=== PATIENT | male | born 1980 | race Caucasian/White ===

== ENCOUNTER 2016-12-21 05:36 | Emergency (ER) | payer OTHER ==
[~2016-12-21] VITALS: Ht 198.1 cm; Wt 158.8 kg
[2016-12-21] MEDS ORDERED: NS 1,000 ML IV ONE (06:15)
[2016-12-21 06:23] LABS: BASO % 0.1 % (0.0-1.0); EOS # 0.1 K/mm3 (0.0-0.50); EOS % 0.7 % (0.0-3.0); LARGE UNSTAINED CELL # 0.1 K/mm3 (0.0-0.4); LARGE UNSTAINED CELL % 0.7 % (0.0-4.0); LYMPH # 0.7 K/mm3 (1.5-4.5); LYMPH % 7.2 % (24.0-44.0); MEAN CORPUSCULAR HEMOGLOBIN 28.1 pg (27.0-33.0); MEAN CORPUSCULAR HGB CONC 33.3 g/dl (32.0-36.5); MEAN CORPUSCULAR VOLUME 84.2 fl (80.0-96.0); MONO # 0.4 K/mm3 (0.0-0.8); MONO % 3.9 % (0.0-5.0); NEUTROPHILS # 8.4 K/mm3 (1.8-7.7); NEUTROPHILS % 87.4 % (36.0-66.0); PLATELET COUNT, AUTOMATED 166 k/mm3 (150-450); RED CELL DISTRIBUTION WIDTH 12.8 % (11.5-14.5); WHITE BLOOD COUNT 9.6 K/mm3 (4.0-10.0)
[2016-12-21 06:48] LABS: ALBUMIN/GLOBULIN RATIO 1.03 (1.00-1.93); ALKALINE PHOSPHATASE 66 U/L (45-117); ALT/SGPT 20 U/L (12-78); ANION GAP 12 MEQ/L (8-16); AST/SGOT 18 U/L (15-37); BILIRUBIN,DIRECT 0.2 MG/DL (0.0-0.2); BILIRUBIN,TOTAL 0.7 MG/DL (0.2-1.0); BLOOD UREA NITROGEN 21 MG/DL (7-18); CALCIUM LEVEL 8.9 MG/DL (8.5-10.1); CARBON DIOXIDE LEVEL 24 MEQ/L (21-32); CHLORIDE LEVEL 105 MEQ/L (98-107); GLOMERULAR FILTRATION RATE > 60.0 (>60); GLUCOSE, FASTING 186 MG/DL (70-105); SODIUM LEVEL 141 MEQ/L (136-145); TOTAL PROTEIN 7.9 GM/DL (6.4-8.2)
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
[2016-12-21] MEDS ORDERED: KETOROLAC 30 MG/ML VIAL (J1885) IV ONE (07:15)
[2016-12-21] MEDS ORDERED: ONDANSETRON 4MG/2ML VIAL (J2405) IV ONE (07:15)
[2016-12-21 08:21] VITALS: O2SAT 97
[2016-12-21] MEDS ORDERED: ZOFR4TAB3 PO (08:22)
[2016-12-21] MEDS ORDERED: ISOVUE-370 76% 100ML VIAL (Q9967) As Ordered ONE (09:30)
[2016-12-21 10:23] VITALS: BP 120/63
--- NOTE | 2016-12-21 10:45 | REP ---
Clinical: Generalized pain. Technique: Axial contrast enhanced images from the lung bases to the pubic symphysis using 100 ml Isovue 370 intravenous contrast material with coronal and sagittal re-formations. Findings: Lung bases clear. Visualized heart and pericardium normal. Moderate hiatal hernia identified at the gastroesophageal junction. Liver, spleen, pancreas, gallbladder, bilateral adrenal glands and kidneys are normal. The stomach, small bowel, and proximal colon appears fluid-filled and may reflect enteritis. No evidence for bowel obstruction. Normal terminal ileum and appendix identified in the right lower quadrant. Pelvis demonstrates collapsed normal bladder and age appropriate prostate/seminal vesicles. No ascites. No free air. No adenopathy. Abdominal aorta and vasculature normal. Musculoskeletal structures are intact. Impression: Fluid-filled stomach and small bowel as well as proximal colon suggest the possibility of enteritis. Normal appendix without evidence for acute appendicitis. No ascites. No further acute intra-abdominal or pelvic pathology appreciated. Signed by Neville Mendez MD 12/21/2016 10:37 A
--- NOTE | 2016-12-22 09:15 | ECGEPIP ---
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
== END 2016-12-21 10:59 | disposition home or self-care (01) ==
LOC: M ED 07:52
DX: R55 Syncope and collapse (principal); S09.90XA Unspecified injury of head, initial encounter; X58.XXXA Exposure to other specified factors, initial encounter; Y92.89 Other specified places as the place of occurrence of the external cause; Y93.89 Activity, other specified; Y99.8 Other external cause status
CPT/HCPCS: 70450; 74177; 80048; 80076; 82550; 82553; 83690; 85025; 93005; 93041; 96374; 96375; 99285; J1885; J2405; Q9967

== ENCOUNTER 2017-01-22 20:55 | Emergency (ER) | payer OTHER ==
[~2017-01-22] VITALS: Ht 195.6 cm; Wt 147.0 kg
[~2017-01-22 20:55] MED LIST: ZOFR4TAB3 PO
[2017-01-22] MEDS ORDERED: AMOX875T PO (21:08)
[2017-01-22] MEDS ORDERED: NS 1,000 ML IV ONE (23:45)
[2017-01-22] MEDS ORDERED: ONDANSETRON 4MG/2ML VIAL (J2405) IV ONE (23:45)
[2017-01-22] MEDS: MORPHINE 4 MG/ML 1ML SYRINGE IV PRN (23:54)
[2017-01-23 00:06] LABS: BASO % 0.3 % (0.0-1.0); EOS # 0.1 K/mm3 (0.0-0.50); EOS % 1.1 % (0.0-3.0); LARGE UNSTAINED CELL # 0.1 K/mm3 (0.0-0.4); LARGE UNSTAINED CELL % 1.3 % (0.0-4.0); LYMPH # 1.6 K/mm3 (1.5-4.5); LYMPH % 16.9 % (24.0-44.0); MEAN CORPUSCULAR HEMOGLOBIN 28.3 pg (27.0-33.0); MEAN CORPUSCULAR HGB CONC 33.7 g/dl (32.0-36.5); MEAN CORPUSCULAR VOLUME 83.9 fl (80.0-96.0); MONO # 0.4 K/mm3 (0.0-0.8); MONO % 3.8 % (0.0-5.0); NEUTROPHILS # 7.2 K/mm3 (1.8-7.7); NEUTROPHILS % 76.6 % (36.0-66.0); PLATELET COUNT, AUTOMATED 212 k/mm3 (150-450); RED CELL DISTRIBUTION WIDTH 13.1 % (11.5-14.5); WHITE BLOOD COUNT 9.4 K/mm3 (4.0-10.0)
[2017-01-23 00:29] LABS: ALBUMIN 3.7 GM/DL (3.2-5.2); ALBUMIN/GLOBULIN RATIO 0.84 (1.00-1.93); ALKALINE PHOSPHATASE 96 U/L (45-117); ALT/SGPT 85 U/L (12-78); ANION GAP 6 MEQ/L (8-16); AST/SGOT 147 U/L (15-37); BILIRUBIN,DIRECT 0.4 MG/DL (0.0-0.2); BILIRUBIN,TOTAL 0.8 MG/DL (0.2-1.0); BLOOD UREA NITROGEN 15 MG/DL (7-18); CALCIUM LEVEL 9.4 MG/DL (8.5-10.1); CARBON DIOXIDE LEVEL 30 MEQ/L (21-32); CHLORIDE LEVEL 104 MEQ/L (98-107); CREATININE FOR GFR 0.92 MG/DL (0.70-1.30); GLOMERULAR FILTRATION RATE > 60.0 (>60); GLUCOSE, FASTING 126 MG/DL (70-105); SODIUM LEVEL 140 MEQ/L (136-145); TOTAL PROTEIN 8.1 GM/DL (6.4-8.2)
--- NOTE | 2017-01-23 00:50 | REPUSA ---
Clinical history: Right upper quadrant pain. Findings: The pancreas is limited in visualization secondary to overlying bowel gas, but appears jenae sly unremarkable. The liver demonstrates uniform echotexture and echogenicity, with no mass lesions. The gallbladder contains echogenic material, some of which demonstrates posterior acoustic shadowing. There is no evidence of gallbladder wall thickening. The common bile duct measures 4 mm and is withi n normal limits. The right kidney measures 12.0 x 7.8 x 4.7 cm and is unremarkable. There is no ascit es. Impression: 1. Cholelithiasis and gallbladder sludge. No evidence of acute cholecystitis.
[2017-01-23] MEDS ORDERED: DICYCLOMINE INJ 20MG/2ML (J0500) IM ONE (01:15)
[2017-01-23] MEDS: MORPHINE 4 MG/ML 1ML SYRINGE IV PRN (01:36)
[2017-01-23 03:14] VITALS: BP 115/67
[2017-01-23] MEDS ORDERED: HYOS1TAB PO (03:26)
== END 2017-01-23 03:30 | disposition home or self-care (01) ==
LOC: M ED 22:20
DX: K80.70 Calculus of gallbladder and bile duct without cholecystitis without obstruction (principal)
CPT/HCPCS: 36415; 76705; 80048; 80076; 83690; 85025; 93041; 96374; 96375; 99284; J0500; J2405

== ENCOUNTER 2017-11-03 12:43 | Emergency (ER) | payer OTHER ==
[2017-11-03] MEDS: IPRATROPIUM 0.5MG/ALBUTEROL 2.5MG INH SOL UD 3ML (DUONEB)(J7620) NEB ×3 (15:53→16:14)
[2017-11-03] MEDS: AUGMENTIN 875 MG TAB PO (17:00)
== END 2017-11-03 17:06 | disposition home or self-care (01) ==
LOC: M ED 12:43
DX: J20.9 Acute bronchitis, unspecified (principal); J10.1 Influenza due to other identified influenza virus with other respiratory manifestations; K44.9 Diaphragmatic hernia without obstruction or gangrene; Z88.1 Allergy status to other antibiotic agents
CPT/HCPCS: 71046

== ENCOUNTER → 2018-07-19 | Outpatient (CLI) | payer OTHER ==
[2018-07-19 18:10] LABS: BASO # 0.1 10^3/uL (0.0-0.2); BASO % 0.8 % (0.0-1.0); EOS # 0.2 10^3/uL (0.0-0.50); EOS % 2.4 % (0.0-3.0); HEMATOCRIT 37.6 % (42.0-52.0); HEMOGLOBIN 11.4 g/dl (13.5-17.5); IMMATURE GRANULOCYTE % 0.3 % (0-3.0); LYMPH # 2.2 10^3/uL (1.5-4.5); LYMPH % 35.6 % (24.0-44.0); MEAN CORPUSCULAR HGB CONC 30.3 g/dl (32.0-36.5); MEAN CORPUSCULAR VOLUME 82.5 fl (80.0-96.0); MONO # 0.7 10^3/uL (0.0-0.8); MONO % 11.4 % (0.0-5.0); NEUTROPHILS % 49.5 % (36.0-66.0); PLATELET COUNT, AUTOMATED 270 10^3/uL (150-450); RED BLOOD COUNT 4.56 10^6/uL (4.30-6.10); RED CELL DISTRIBUTION WIDTH 13.1 % (11.5-14.5); WHITE BLOOD COUNT 6.1 10^3/uL (4.0-10.0)
[2018-07-19 18:15] LABS: PSA SCREENING 0.56 NG/ML (< 4.0)
[2018-07-19 18:16] LABS: D-DIMER QUANT 561.7 ng/ml (<500)
[2018-07-19 19:21] LABS: ERYTHROCYTE SEDIMENTATION RATE 42 mm/hr (0-15)
[2018-07-21 08:39] LABS: FERRITIN 9 NG/ML (26-388); IRON (FE) 24 UG/DL (65-175); TOTAL IRON BINDING CAPACITY 403 UG/DL (250-450)
== END ==
LOC: M SMT 13:30
DX: R07.9 Chest pain, unspecified (principal); Q98.1 Klinefelter syndrome, male with more than two X chromosomes; R05 Cough
CPT/HCPCS: 83550

== ENCOUNTER → 2019-06-01 | Outpatient (REF) | payer OTHER ==
[~2019-06-01] MED LIST changes: +AMOX875T PO; +AUGM875T28 PO; +CVS1CAP2 PO; +HYOS1TAB PO; +OSEL75CA2; +PROAAER10 INH; +ZOFR4TAB14 PO; -ZOFR4TAB3 PO
== END ==
LOC: M LAB REF 17:18
PROVIDERS: ATTEND Family Medicine
DX: R21 Rash and other nonspecific skin eruption (principal)

== ENCOUNTER 2019-06-24 08:47 | Emergency (ER) | payer OTHER ==
[~2019-06-24] VITALS: Ht 198.1 cm; Wt 159.1 kg
[~2019-06-24 08:47] MED LIST changes: -CVS1CAP2 PO
[2019-06-24] MEDS ORDERED: CVS1CAP2 PO (09:03)
[2019-06-24] MEDS ORDERED: ASPIRIN 81 MG CHEW TABLET PO ONE (09:15)
[2019-06-24 09:31] LABS: BASO % 0.6 % (0.0-1.0); EOS # 0.2 10^3/uL (0.0-0.5); EOS % 2.8 % (0.0-3.0); HEMATOCRIT 25.2 % (42.0-52.0); HEMOGLOBIN 7.2 g/dl (13.5-17.5); LYMPH # 1.9 10^3/uL (1.5-5.0); LYMPH % 34.6 % (24.0-44.0); MEAN CORPUSCULAR HEMOGLOBIN 20.2 pg (27.0-33.0); MEAN CORPUSCULAR HGB CONC 28.6 g/dl (32.0-36.5); MEAN CORPUSCULAR VOLUME 70.6 fl (80.0-96.0); MONO # 0.4 10^3/uL (0.0-0.8); MONO % 7.1 % (0.0-5.0); NEUTROPHILS # 2.9 10^3/uL (1.5-8.5); NEUTROPHILS % 54.5 % (36.0-66.0); PLATELET COUNT, AUTOMATED 331 10^3/uL (150-450); RED BLOOD COUNT 3.57 10^6/uL (4.30-6.10); WHITE BLOOD COUNT 5.4 10^3/uL (4.0-10.0)
--- NOTE | 2019-06-24 09:40 | REP ---
Portable chest x-ray: Single view. History: Chest pain. Comparison chest x-ray: July 19, 2018. Findings: There is a large hiatal hernia behind the heart. Heart is not enlarged. Lungs are well inflated and clear. EKG monitoring electrodes are seen. Pulmonary vasculature is not increased. No significant bony abnormality is appreciated. Impression: Large hiatal hernia. Otherwise no acute disease. Electronically Signed by Sony Oropeza MD 06/24/2019 09:32 A
[2019-06-24 10:08] LABS: ALBUMIN 3.5 GM/DL (3.2-5.2); ALT/SGPT 14 U/L (12-78); BILIRUBIN,DIRECT 0.1 MG/DL (0.0-0.2); BILIRUBIN,TOTAL 0.5 MG/DL (0.2-1.0); BLOOD UREA NITROGEN 13 MG/DL (7-18); CALCIUM LEVEL 8.5 MG/DL (8.5-10.1); CARBON DIOXIDE LEVEL 25 MEQ/L (21-32); CHLORIDE LEVEL 107 MEQ/L (98-107); CK-MB VALUE MASS < 1.0 NG/ML (<3.6); CPK CREATINE PHOSPHOKINASE 70 U/L (39-308); CREATININE FOR GFR 0.94 MG/DL (0.70-1.30); FREE T4 1.23 NG/DL (0.76-1.46); GLOMERULAR FILTRATION RATE > 60.0 (>60); GLUCOSE, FASTING 106 MG/DL (70-100); LIPASE 108 U/L (73-393); MB/CK RELATIVE INDEX 1.43 (< OR =4); POTASSIUM SERUM 4.2 MEQ/L (3.5-5.1); SODIUM LEVEL 140 MEQ/L (136-145); TOTAL PROTEIN 7.3 GM/DL (6.4-8.2); TROPONIN I < 0.02 NG/ML (< 0.10)
[2019-06-24] MEDS ORDERED: NS 1,000 ML IV ONE (10:45)
[2019-06-24] MEDS ORDERED: ISOVUE-370 76% 100ML VIAL (Q9967) As Ordered ONE (11:27)
[2019-06-24] MEDS ORDERED: PANTOPRAZOLE 40MG INJ (PROTONIX) (C9113) IV ONE (11:30)
--- NOTE | 2019-06-24 12:40 | REP ---
CT ANGIO CHEST: TECHNIQUE: Axial contrast enhanced images from the thoracic inlet to the upper abdomen using 100 mL Isovue 370 intravenous contrast material with multiplanar reformations. There is no CT evidence of pulmonary embolism. There is no thoracic aortic aneurysm or dissection. The heart is normal in size. There is no pleural or pericardial effusion. There is no mediastinal, hilar, or chest wall lymphadenopathy. There is a large hiatal hernia. No infiltrate is seen in either lung. Incidental note is made of mild bilateral gynecomastia. IMPRESSION: No CT evidence of pulmonary embolism. No infiltrate in either lung. Large hiatal hernia. Electronically Signed by Santy Berman MD 06/24/2019 04:40 P
[2019-06-24 15:04] LABS: CK-MB VALUE MASS 1.5 NG/ML (<3.6); MB/CK RELATIVE INDEX 2.08 (< OR =4); TROPONIN I 0.17 NG/ML (< 0.10)
--- NOTE | 2019-06-24 15:21 | REP ---
CT of the abdomen and pelvis with IV contrast, without bowel contrast: The studies performed contiguously with the chest CT this same date. Comparison is 12/21/2016. There is a large fixed hiatal hernia containing the entire stomach. Previously only the gastric fundus was involved. There is a small volume of fluid in the distal esophagus. The hepatic parenchyma is homogeneous. The gallbladder, pancreas and spleen are unremarkable. The adrenals, kidneys and abdominal aorta are unremarkable. There is no bowel distension or obstruction. There is no ascites. There is no retroperitoneal or mesenteric adenopathy. Pelvis: The appendix is unremarkable. There is no ascites. The pelvic bowel loops are unremarkable. The bladder is unremarkable. The Impression: Large fixed hiatal hernia containing the entire stomach. Only the gastric fundus was involved on the prior study. Otherwise, essentially negative CT of the abdomen and pelvis. Electronically Signed by Santy Castro MD 06/24/2019 03:13 P
[2019-06-24] MEDS ORDERED: NS 1,000 ML IV SCH (16:30)
[2019-06-24 17:08] VITALS: BP 128/77
--- NOTE | 2019-06-24 20:05 | ECGEPIP ---
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
--- NOTE | 2019-06-24 20:12 | ECGEPIP ---
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 Order Number: [id number] Reading MD: Hunter Altamirano Measurements Intervals [place] Rate: 74 P: 6 PA: 187 QRS: -1 QRSD: 105 T: 8 QT: 377 QTc: 419 Interpretive Statements SINUS RHYTHM VOLTAGE CRITERIA FOR LVH BENIGN EARLY REPOLARIZATION SIMILAR TO PRIOR ON SAME DATE Electronically Signed on 06-24-2019 20:12:14 EDT by Hunter Altamirano
== END 2019-06-24 17:13 | disposition short-term general hospital (02) ==
LOC: M ED 08:47
DX: I21.4 Non-ST elevation (NSTEMI) myocardial infarction (principal); K92.2 Gastrointestinal hemorrhage, unspecified; K44.9 Diaphragmatic hernia without obstruction or gangrene; D64.9 Anemia, unspecified; I45.89 Other specified conduction disorders; Z79.899 Other long term (current) drug therapy; Z88.1 Allergy status to other antibiotic agents
CPT/HCPCS: 71045; 71275; 74177; 80048; 80076; 82550; 82553; 83690; 84439; 84443; 84484; 85025; 85379; 93005; 93041; 94760; 96361; 96374; 99285; C9113; Q9967

== ENCOUNTER → 2019-07-22 | Outpatient (CLI) | payer OTHER ==
[~2019-07-22] MED LIST changes: +CVS1CAP2 PO
[2019-07-22 16:37] LABS: BASO % 0.6 % (0.0-1.0); EOS # 0.2 10^3/uL (0.0-0.5); EOS % 2.9 % (0.0-3.0); HEMATOCRIT 36.4 % (42.0-52.0); HEMOGLOBIN 10.5 g/dl (13.5-17.5); LYMPH # 2.3 10^3/uL (1.5-5.0); MEAN CORPUSCULAR HEMOGLOBIN 22.7 pg (27.0-33.0); MEAN CORPUSCULAR HGB CONC 28.8 g/dl (32.0-36.5); MEAN CORPUSCULAR VOLUME 78.8 fl (80.0-96.0); MONO # 0.4 10^3/uL (0.0-0.8); NEUTROPHILS # 3.4 10^3/uL (1.5-8.5); NEUTROPHILS % 54.2 % (36.0-66.0); PLATELET COUNT, AUTOMATED 274 10^3/uL (150-450); RED BLOOD COUNT 4.62 10^6/uL (4.30-6.10); WHITE BLOOD COUNT 6.3 10^3/uL (4.0-10.0)
[2019-07-22 16:48] LABS: ALBUMIN 3.8 GM/DL (3.2-5.2); ALT/SGPT 19 U/L (12-78); BILIRUBIN,TOTAL 0.5 MG/DL (0.2-1.0); BLOOD UREA NITROGEN 13 MG/DL (7-18); CALCIUM LEVEL 9.3 MG/DL (8.5-10.1); CARBON DIOXIDE LEVEL 29 MEQ/L (21-32); CHLORIDE LEVEL 107 MEQ/L (98-107); FERRITIN 15 NG/ML (26-388); FREE T4 1.19 NG/DL (0.76-1.46); GLOMERULAR FILTRATION RATE > 60.0 (>60); GLUCOSE, FASTING 115 MG/DL (70-100); IRON (FE) 76 UG/DL (65-175); PERCENT SATURATION 20.3 % (19.7-50.0); POTASSIUM SERUM 4.5 MEQ/L (3.5-5.1); SODIUM LEVEL 140 MEQ/L (136-145); TOTAL IRON BINDING CAPACITY 374 UG/DL (250-450); TOTAL PROTEIN 7.6 GM/DL (6.4-8.2)
[2019-07-22 16:59] LABS: HEMOGLOBIN A1c 5.3 %
== END ==
LOC: M WUC 11:55
PROVIDERS: ATTEND Family Medicine
DX: D50.9 Iron deficiency anemia, unspecified (principal); E66.01 Morbid (severe) obesity due to excess calories; Q98.1 Klinefelter syndrome, male with more than two X chromosomes

== ENCOUNTER 2019-10-22 18:26 | Inpatient (IN) | payer OTHER ==
[~2019-10-22] VITALS: Ht 198.1 cm; Wt 152.9 kg
[2019-10-22] MEDS ORDERED: ONDANSETRON 4MG/2ML VIAL (J2405) IV ONE (19:00)
[2019-10-22] MEDS ORDERED: NS 1,000 ML IV ONE (19:00)
[2019-10-22] MEDS: MORPHINE 4 MG/ML 1ML VIAL/SYRINGE (J2270) IV PRN ×2 (19:04→19:34)
[2019-10-22 19:24] LABS: BASO % 0.2 % (0.0-1.0); EOS # 0.1 10^3/uL (0.0-0.5); EOS % 1.3 % (0.0-3.0); HEMATOCRIT 36.1 % (42.0-52.0); HEMOGLOBIN 11.3 g/dl (13.5-17.5); LYMPH # 2.1 10^3/uL (1.5-5.0); LYMPH % 23.9 % (24.0-44.0); MEAN CORPUSCULAR HEMOGLOBIN 25.4 pg (27.0-33.0); MEAN CORPUSCULAR HGB CONC 31.3 g/dl (32.0-36.5); MEAN CORPUSCULAR VOLUME 81.1 fl (80.0-96.0); MONO # 0.5 10^3/uL (0.0-0.8); MONO % 6.1 % (0.0-5.0); NEUTROPHILS % 67.6 % (36.0-66.0); PLATELET COUNT, AUTOMATED 196 10^3/uL (150-450); RED BLOOD COUNT 4.45 10^6/uL (4.30-6.10); WHITE BLOOD COUNT 8.9 10^3/uL (4.0-10.0)
[2019-10-22 19:35] LABS: INR 1.12; PARTIAL THROMBOPLASTIN TIME 26.7 SECONDS (25.0-38.4); PROTHROMBIN TIME 14.1 SECONDS (11.8-14.0)
[2019-10-22 19:43] LABS: ALBUMIN 3.4 GM/DL (3.2-5.2); ALT/SGPT 20 U/L (12-78); BILIRUBIN,DIRECT < 0.1 MG/DL (0.0-0.2); BILIRUBIN,TOTAL 0.4 MG/DL (0.2-1.0); BLOOD UREA NITROGEN 12 MG/DL (7-18); CALCIUM LEVEL 8.6 MG/DL (8.5-10.1); CARBON DIOXIDE LEVEL 25 MEQ/L (21-32); CHLORIDE LEVEL 110 MEQ/L (98-107); CK-MB VALUE MASS 1.1 NG/ML (<3.6); CPK CREATINE PHOSPHOKINASE 130 U/L (39-308); CREATININE FOR GFR 0.93 MG/DL (0.70-1.30); GLOMERULAR FILTRATION RATE > 60.0 (>60); GLUCOSE, FASTING 102 MG/DL (70-100); LIPASE 182 U/L (73-393); MB/CK RELATIVE INDEX 0.85 (< OR =4); POTASSIUM SERUM 3.6 MEQ/L (3.5-5.1); SODIUM LEVEL 141 MEQ/L (136-145); TROPONIN I < 0.02 NG/ML (< 0.10)
[2019-10-22] MEDS ORDERED: ISOVUE-370 76% 100ML VIAL (Q9967) As Ordered ONE (19:48)
[2019-10-22] MEDS ORDERED: fentaNYL 100 MCG/2 ML INJECTION (J3010) IV ONE ×3 (20:00→22:45)
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
[2019-10-22] MEDS ORDERED: MORPHINE 2 MG/ML 1ML VIAL (J2270) IV PRN (22:45)
[2019-10-22] MEDS ORDERED: ONDANSETRON 4MG/2ML VIAL (J2405) IV PRN (22:45)
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
[2019-10-22] MEDS ORDERED: FERR32TA PO (22:54)
[2019-10-22] MEDS ORDERED: PANT-23 PO (22:54)
[2019-10-22] MEDS ORDERED: SAXE1INJ SC (22:54)
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
[2019-10-22] MEDS ORDERED: KETOROLAC 30 MG/ML VIAL (J1885) IV PRN (23:00)
[2019-10-22 23:20] LABS: VENOUS BASE EXCESS -1.4 (-2.0-2.0); VENOUS HCO3 22.8 MEQ/L (23.0-27.0); VENOUS O2 SATURATION 99.1 % (60.0-80.0); VENOUS PARTIAL PRESSURE CO2 36.5 mmHg (38.0-50.0); VENOUS PARTIAL PRESSURE O2 149.2 mmHg (30.0-50.0); VENOUS PH 7.414 UNITS (7.330-7.430); VENOUS STANDARD HCO3 23.4 MEQ/L; VENOUS TOTAL CO2 23.9 MEQ/L (24.0-28.0)
[2019-10-23] VITALS (25 sets, daily range): BP systolic 137–161; BP diastolic 77–98; O2SAT 91–99
[2019-10-23] MEDS: NS 1,000 ML IV SCH ×2 (00:11→07:43)
[2019-10-23] MEDS ORDERED: IPRATROPIUM 0.5MG/ALBUTEROL 2.5MG INH SOL UD 3ML (DUONEB)(J7620) NEB PRN ×2 (01:00→15:15)
[2019-10-23] MEDS: MORPHINE 4 MG/ML 1ML VIAL/SYRINGE (J2270) IV PRN ×3 (01:49→13:33)
[2019-10-23 05:54] LABS: HEMATOCRIT 35.4 % (42.0-52.0); HEMOGLOBIN 10.4 g/dl (13.5-17.5); MEAN CORPUSCULAR HEMOGLOBIN 24.3 pg (27.0-33.0); MEAN CORPUSCULAR HGB CONC 29.4 g/dl (32.0-36.5); MEAN CORPUSCULAR VOLUME 82.7 fl (80.0-96.0); PLATELET COUNT, AUTOMATED 169 10^3/uL (150-450); RED BLOOD COUNT 4.28 10^6/uL (4.30-6.10); WHITE BLOOD COUNT 6.5 10^3/uL (4.0-10.0)
[2019-10-23 06:17] LABS: BLOOD UREA NITROGEN 9 MG/DL (7-18); CALCIUM LEVEL 8.3 MG/DL (8.5-10.1); CARBON DIOXIDE LEVEL 28 MEQ/L (21-32); CHLORIDE LEVEL 109 MEQ/L (98-107); CREATININE FOR GFR 0.81 MG/DL (0.70-1.30); GLOMERULAR FILTRATION RATE > 60.0 (>60); GLUCOSE, FASTING 89 MG/DL (70-100); POTASSIUM SERUM 3.9 MEQ/L (3.5-5.1); SODIUM LEVEL 139 MEQ/L (136-145)
[2019-10-23] MEDS: PANTOPRAZOLE 40MG INJ (PROTONIX) (C9113) IV SCH (07:43)
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
[2019-10-23] MEDS: KETOROLAC 30 MG/ML VIAL (J1885) IV SCH ×3 (11:16→22:04)
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
--- NOTE | 2019-10-23 19:19 | ECGEPIP ---
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
[2019-10-23] MEDS: IPRATROPIUM 0.5MG/ALBUTEROL 2.5MG INH SOL UD 3ML (DUONEB)(J7620) NEB SCH (19:53)
[2019-10-24] VITALS (16 sets, daily range): BP systolic 110–132; BP diastolic 68–90; O2SAT 90–96
[2019-10-24] MEDS: IPRATROPIUM 0.5MG/ALBUTEROL 2.5MG INH SOL UD 3ML (DUONEB)(J7620) NEB SCH ×3 (02:00→15:11)
[2019-10-24] MEDS: KETOROLAC 30 MG/ML VIAL (J1885) IV SCH ×2 (04:07→11:05)
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
[2019-10-24] MEDS: PANTOPRAZOLE 40MG INJ (PROTONIX) (C9113) IV SCH (09:58)
[2019-10-24] MEDS ORDERED: NORCO, ANEXSIA 5/325MG TABLET (HYDROcodone/ACETAMINOPHEN) PO PRN ×2 (10:00)
[2019-10-24 10:41] LABS: HEMOGLOBIN 10.6 g/dl (13.5-17.5); MEAN CORPUSCULAR HGB CONC 30.3 g/dl (32.0-36.5); MEAN CORPUSCULAR VOLUME 82.5 fl (80.0-96.0); PLATELET COUNT, AUTOMATED 149 10^3/uL (150-450); RED BLOOD COUNT 4.24 10^6/uL (4.30-6.10); WHITE BLOOD COUNT 5.9 10^3/uL (4.0-10.0)
[2019-10-24 10:56] LABS: ALT/SGPT 19 U/L (12-78); BILIRUBIN,TOTAL 0.6 MG/DL (0.2-1.0); BLOOD UREA NITROGEN 10 MG/DL (7-18); CALCIUM LEVEL 8.6 MG/DL (8.5-10.1); CARBON DIOXIDE LEVEL 27 MEQ/L (21-32); CHLORIDE LEVEL 109 MEQ/L (98-107); CREATININE FOR GFR 0.75 MG/DL (0.70-1.30); GLOMERULAR FILTRATION RATE > 60.0 (>60); GLUCOSE, FASTING 103 MG/DL (70-100); SODIUM LEVEL 140 MEQ/L (136-145); TOTAL PROTEIN 6.9 GM/DL (6.4-8.2)
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
[2019-10-24] MEDS ORDERED: KETO10TAB PO (14:08)
[2019-10-24] MEDS ORDERED: HYDR-3715 PO (14:08)
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
== END 2019-10-24 17:10 | disposition home or self-care (01) | DRG 930 ==
LOC: EDUNIT# 18:26 → M ED 18:26 → EDBD 18:26 → M ED INP 22:36 → ENRESERV 23:19 → M PCU 10-23 00:22
PROVIDERS: ADMIT Surgery; ATTEND Surgery
DX: S22.41XA Multiple fractures of ribs, right side, initial encounter for closed fracture (principal); E66.01 Morbid (severe) obesity due to excess calories; S37.011A Minor contusion of right kidney, initial encounter; V49.40XA Driver injured in collision with unspecified motor vehicles in traffic accident, initial encounter; R22.41 Localized swelling, mass and lump, right lower limb; I25.2 Old myocardial infarction; K44.9 Diaphragmatic hernia without obstruction or gangrene; D64.9 Anemia, unspecified; Z79.899 Other long term (current) drug therapy; Z88.1 Allergy status to other antibiotic agents; Z68.39 Body mass index [BMI] 39.0-39.9, adult; G47.30 Sleep apnea, unspecified; M25.561 Pain in right knee

== ENCOUNTER 2019-11-04 12:13 | Emergency (ER) | payer OTHER ==
[~2019-11-04] VITALS: Ht 198.1 cm; Wt 159.1 kg
[~2019-11-04 12:13] MED LIST changes: -ELIQ5TAB PO
[2019-11-04 13:14] LABS: BASO # 0.1 10^3/uL (0.0-0.2); BASO % 0.8 % (0.0-1.0); EOS # 0.2 10^3/uL (0.0-0.5); EOS % 3.8 % (0.0-3.0); HEMATOCRIT 36.2 % (42.0-52.0); HEMOGLOBIN 10.8 g/dl (13.5-17.5); LYMPH % 31.3 % (24.0-44.0); MEAN CORPUSCULAR HEMOGLOBIN 25.1 pg (27.0-33.0); MEAN CORPUSCULAR HGB CONC 29.8 g/dl (32.0-36.5); MEAN CORPUSCULAR VOLUME 84.2 fl (80.0-96.0); MONO # 0.4 10^3/uL (0.0-0.8); MONO % 5.6 % (0.0-5.0); NEUTROPHILS # 3.7 10^3/uL (1.5-8.5); NEUTROPHILS % 58.2 % (36.0-66.0); PLATELET COUNT, AUTOMATED 223 10^3/uL (150-450); WHITE BLOOD COUNT 6.4 10^3/uL (4.0-10.0)
[2019-11-04 13:25] LABS: INR 1.08; PROTHROMBIN TIME 13.8 SECONDS (11.8-14.0)
[2019-11-04 13:26] LABS: PARTIAL THROMBOPLASTIN TIME 29.1 SECONDS (25.0-38.4)
[2019-11-04] MEDS ORDERED: ELIQ5TAB PO (13:51)
[2019-11-04 13:59] VITALS: BP 129/68
[2019-11-08 11:17] LABS: DRVV SCREEN 39.2 SEC
== END 2019-11-04 14:02 | disposition home or self-care (01) ==
LOC: M ED 12:13
DX: I82.401 Acute embolism and thrombosis of unspecified deep veins of right lower extremity (principal); I25.2 Old myocardial infarction; G47.33 Obstructive sleep apnea (adult) (pediatric); Q98.4 Klinefelter syndrome, unspecified; Z79.01 Long term (current) use of anticoagulants; Z79.899 Other long term (current) drug therapy; Z88.1 Allergy status to other antibiotic agents

== ENCOUNTER → 2019-11-04 | Outpatient (CLI) | payer OTHER ==
[~2019-11-04] MED LIST changes: +ELIQ5TAB PO; +FERR32TA PO; +HYDR-3715 PO; +KETO10TAB PO; +PANT-23 PO; +SAXE1INJ SC
--- NOTE | 2019-11-04 15:43 | REP ---
Duplex extremity venous ultrasound: Bilateral lower extremities. History: Bilateral leg pain. Rule out DVT. Findings: The deep veins are anechoic and fully compressible from the groin to the popliteal fossa in the left and right lower extremity. Color flow imaging is homogeneous. Spectral Doppler interrogation demonstrates intact respiratory variation in flow and normal manual augmentation of flow. There is no evidence of deep vein thrombosis [id number] on either side . There is a Camilo's cyst in the posterior popliteal fossa on the left measuring 3.0 x 0.6 x 2.8 cm. In the right proximal calf there is nonocclusive thrombus in one of the proximal anterior tibial veins. This is below the knee. Impression: There is a left-sided Camilo's cyst. There is nonocclusive thrombus and one of the proximal anterior tibial veins in the right calf consistent with [id number] deep vein thrombosis. Otherwise negative. No evidence of deep vein thrombosis [id number] on either side. Electronically Signed by Sony Oropeza MD 11/04/2019 11:40 A
== END ==
LOC: M RAD 10:32
PROVIDERS: ATTEND Orthopaedic Surgery Hand Surgery
DX: M79.661 Pain in right lower leg (principal); M79.662 Pain in left lower leg; M71.22 Synovial cyst of popliteal space [Baker], left knee; I82.441 Acute embolism and thrombosis of right tibial vein

== ENCOUNTER → 2020-03-29 | Outpatient (CLI) | payer OTHER ==
[~2020-03-29] MED LIST changes: +ELIQ5TAB PO
--- NOTE | 2020-03-29 10:53 | REP ---
Clinical: Right lower extremity pain . Technique: Berman scale and color Doppler evaluation right lower extremity using linear high frequency transducer. Findings: Ultrasound examination of the right lower extremity deep venous structures from the common femoral vein to the popliteal vein demonstrates normal compressibility flow and wave patterns in response to respiration and augmentation. There is no evidence for deep venous thrombosis. Impression: No evidence for deep venous thrombosis. Electronically Signed by Neville Mendez MD 03/29/2020 10:45 A
== END ==
LOC: M RAD 10:08
PROVIDERS: ATTEND Orthopaedic Surgery Sports Medicine
DX: M79.604 Pain in right leg (principal)

== ENCOUNTER → 2020-07-04 | Outpatient (CLI) | payer OTHER ==
[2020-07-04 16:39] LABS: BASO # 0.1 10^3/uL (0.0-0.2); BASO % 0.7 % (0.0-1.0); EOS # 0.6 10^3/uL (0.0-0.5); EOS % 7.5 % (0.0-3.0); HEMATOCRIT 44.8 % (42.0-52.0); HEMOGLOBIN 13.9 g/dl (13.5-17.5); LYMPH # 2.3 10^3/uL (1.5-5.0); LYMPH % 26.7 % (24.0-44.0); MEAN CORPUSCULAR VOLUME 87.2 fl (80.0-96.0); MONO # 0.6 10^3/uL (0.0-0.8); MONO % 6.4 % (0.0-5.0); NEUTROPHILS % 58.4 % (36.0-66.0); PLATELET COUNT, AUTOMATED 225 10^3/uL (150-450); RED BLOOD COUNT 5.14 10^6/uL (4.30-6.10); WHITE BLOOD COUNT 8.6 10^3/uL (4.0-10.0)
[2020-07-04 17:08] LABS: BLOOD UREA NITROGEN 9 MG/DL (7-18); CALCIUM LEVEL 9.4 MG/DL (8.5-10.1); CARBON DIOXIDE LEVEL 29 MEQ/L (21-32); CHLORIDE LEVEL 106 MEQ/L (98-107); CREATININE FOR GFR 0.93 MG/DL (0.70-1.30); GLOMERULAR FILTRATION RATE > 60.0 (>60); GLUCOSE, FASTING 91 MG/DL (70-100); POTASSIUM SERUM 4.4 MEQ/L (3.5-5.1); SODIUM LEVEL 139 MEQ/L (136-145)
[2020-07-04 17:09] LABS: ALBUMIN 3.9 GM/DL (3.2-5.2); ALT/SGPT 18 U/L (12-78); BILIRUBIN,DIRECT 0.2 MG/DL (0.0-0.2); BILIRUBIN,TOTAL 0.9 MG/DL (0.2-1.0); LIPASE 94 U/L (73-393)
== END ==
LOC: M WUC 14:24
PROVIDERS: ATTEND Physician Assistant
DX: R19.7 Diarrhea, unspecified (principal)

== ENCOUNTER → 2020-12-06 | Outpatient (CLI) | payer OTHER ==
[2020-12-06 12:18] LABS: BASO # 0.1 10^3/uL (0.0-0.2); BASO % 0.8 % (0.0-1.0); EOS # 0.2 10^3/uL (0.0-0.5); EOS % 2.3 % (0.0-3.0); HEMATOCRIT 41.4 % (42.0-52.0); LYMPH # 2.2 10^3/uL (1.5-5.0); LYMPH % 33.6 % (24.0-44.0); MEAN CORPUSCULAR HEMOGLOBIN 27.2 pg (27.0-33.0); MEAN CORPUSCULAR HGB CONC 31.4 g/dl (32.0-36.5); MEAN CORPUSCULAR VOLUME 86.6 fl (80.0-96.0); MONO # 0.4 10^3/uL (0.0-0.8); MONO % 6.6 % (2.0-8.0); NEUTROPHILS # 3.7 10^3/uL (1.5-8.5); NEUTROPHILS % 56.4 % (36.0-66.0); PLATELET COUNT, AUTOMATED 215 10^3/uL (150-450); RED BLOOD COUNT 4.78 10^6/uL (4.30-6.10); WHITE BLOOD COUNT 6.5 10^3/uL (4.0-10.0)
[2020-12-06 12:52] LABS: FREE T4 1.08 NG/DL (0.76-1.46); THYROID STIMULATING HORMONE 1.21 uIU/ML (0.358-3.740)
[2020-12-07 20:11] LABS: TESTOSTERONE FREE (DIRECT) 4.1 pg/mL (6.8-21.5)
== END ==
LOC: M WUC 09:11
PROVIDERS: ATTEND Internal Medicine
DX: E29.1 Testicular hypofunction (principal); Z12.5 Encounter for screening for malignant neoplasm of prostate
CPT/HCPCS: 36415; 84402; 84403; 84439; 84443; 85025; G0103

== ENCOUNTER → 2020-12-28 | Outpatient (REF) | payer OTHER ==
[2020-12-28 13:13] LABS: BASO # 0.1 10^3/uL (0.0-0.2); BASO % 0.9 % (0.0-1.0); EOS # 0.1 10^3/uL (0.0-0.5); HEMATOCRIT 41.6 % (42.0-52.0); HEMOGLOBIN 12.8 g/dl (13.5-17.5); LYMPH # 2.2 10^3/uL (1.5-5.0); LYMPH % 32.6 % (24.0-44.0); MEAN CORPUSCULAR HEMOGLOBIN 27.1 pg (27.0-33.0); MEAN CORPUSCULAR HGB CONC 30.8 g/dl (32.0-36.5); MEAN CORPUSCULAR VOLUME 88.1 fl (80.0-96.0); MONO # 0.6 10^3/uL (0.0-0.8); MONO % 8.6 % (2.0-8.0); NEUTROPHILS # 3.8 10^3/uL (1.5-8.5); NEUTROPHILS % 55.6 % (36.0-66.0); PLATELET COUNT, AUTOMATED 260 10^3/uL (150-450); RED BLOOD COUNT 4.72 10^6/uL (4.30-6.10); WHITE BLOOD COUNT 6.9 10^3/uL (4.0-10.0)
[2020-12-29 19:06] LABS: TESTOSTERONE FREE (DIRECT) 20.5 pg/mL (6.8-21.5)
== END ==
LOC: M WUC 12:14
PROVIDERS: ATTEND Internal Medicine
DX: Q98.4 Klinefelter syndrome, unspecified (principal); E29.1 Testicular hypofunction

== ENCOUNTER → 2021-02-28 | Outpatient (CLI) | payer OTHER ==
[2021-02-28 12:30] LABS: BASO # 0.1 10^3/uL (0.0-0.2); BASO % 0.8 % (0.0-1.0); EOS # 0.2 10^3/uL (0.0-0.5); EOS % 2.8 % (0.0-3.0); HEMOGLOBIN 13.7 g/dl (13.5-17.5); LYMPH # 1.9 10^3/uL (1.5-5.0); LYMPH % 28.6 % (24.0-44.0); MEAN CORPUSCULAR HEMOGLOBIN 25.9 pg (27.0-33.0); MEAN CORPUSCULAR HGB CONC 29.8 g/dl (32.0-36.5); MEAN CORPUSCULAR VOLUME 87.1 fl (80.0-96.0); MONO # 0.6 10^3/uL (0.0-0.8); MONO % 9.9 % (2.0-8.0); NEUTROPHILS # 3.7 10^3/uL (1.5-8.5); NEUTROPHILS % 57.6 % (36.0-66.0); PLATELET COUNT, AUTOMATED 246 10^3/uL (150-450); RED BLOOD COUNT 5.28 10^6/uL (4.30-6.10); WHITE BLOOD COUNT 6.5 10^3/uL (4.0-10.0)
[2021-02-28 12:45] LABS: HEMOGLOBIN A1c 5.3 %
[2021-02-28 13:05] LABS: ALBUMIN 3.7 GM/DL (3.2-5.2); ALT/SGPT 29 U/L (12-78); BILIRUBIN,TOTAL 0.7 MG/DL (0.2-1.0); BLOOD UREA NITROGEN 10 MG/DL (7-18); CALCIUM LEVEL 9.2 MG/DL (8.5-10.1); CARBON DIOXIDE LEVEL 30 MEQ/L (21-32); CHLORIDE LEVEL 106 MEQ/L (98-107); CREATININE FOR GFR 0.92 MG/DL (0.70-1.30); FERRITIN 15 NG/ML (26-388); GLOMERULAR FILTRATION RATE > 60.0 (>60); GLUCOSE, FASTING 107 MG/DL (70-100); IRON (FE) 98 UG/DL (65-175); NT-PRO BNP 8 PG/ML (<125); PERCENT SATURATION 23.6 % (19.7-50.0); POTASSIUM SERUM 4.3 MEQ/L (3.5-5.1); SODIUM LEVEL 140 MEQ/L (136-145); TOTAL IRON BINDING CAPACITY 416 UG/DL (250-450); TOTAL PROTEIN 7.4 GM/DL (6.4-8.2)
== END ==
LOC: M WUC 09:48
PROVIDERS: ATTEND Family Medicine
DX: I10 Essential (primary) hypertension (principal); D50.9 Iron deficiency anemia, unspecified

== ENCOUNTER → 2021-10-08 | Outpatient (CLI) | payer OTHER ==
[2021-10-08 12:55] LABS: BASO % 0.6 % (0.0-1.0); EOS # 0.1 10^3/uL (0.0-0.5); EOS % 2.1 % (0.0-3.0); HEMATOCRIT 41.8 % (42.0-52.0); HEMOGLOBIN 13.4 g/dl (13.5-17.5); LYMPH % 29.9 % (24.0-44.0); MEAN CORPUSCULAR HEMOGLOBIN 28.2 pg (27.0-33.0); MEAN CORPUSCULAR HGB CONC 32.1 g/dl (32.0-36.5); MONO # 0.5 10^3/uL (0.0-0.8); MONO % 7.1 % (2.0-8.0); NEUTROPHILS # 4.1 10^3/uL (1.5-8.5); NEUTROPHILS % 60.2 % (36.0-66.0); PLATELET COUNT, AUTOMATED 197 10^3/uL (150-450); RED BLOOD COUNT 4.75 10^6/uL (4.30-6.10); WHITE BLOOD COUNT 6.8 10^3/uL (4.0-10.0)
[2021-10-08 13:30] LABS: ALBUMIN 3.7 GM/DL (3.2-5.2); ALT/SGPT 22 U/L (12-78); BILIRUBIN,TOTAL 0.8 MG/DL (0.2-1.0); BLOOD UREA NITROGEN 13 MG/DL (7-18); CALCIUM LEVEL 8.9 MG/DL (8.5-10.1); CARBON DIOXIDE LEVEL 29 MEQ/L (21-32); CHLORIDE LEVEL 106 MEQ/L (98-107); CHOLESTEROL LEVEL 185 MG/DL (<200); CREATININE FOR GFR 0.83 MG/DL (0.70-1.30); FERRITIN 76 NG/ML (26-388); GLOMERULAR FILTRATION RATE > 60.0 (>60); GLUCOSE, FASTING 109 MG/DL (70-100); HDL CHOLESTEROL 37 MG/DL (>40); IRON (FE) 77 UG/DL (65-175); LDL CHOLESTEROL 119 MG/DL (<100); NON-HDL-C 148 MG/DL; PERCENT SATURATION 25.8 % (19.7-50.0); SODIUM LEVEL 140 MEQ/L (136-145); TOTAL IRON BINDING CAPACITY 298 UG/DL (250-450); TOTAL PROTEIN 7.6 GM/DL (6.4-8.2); TRIGLYCERIDES LEVEL 144 MG/DL (<150)
[2021-10-08 13:39] LABS: VITAMIN B12 LEVEL 431 PG/ML (247-911)
[2021-10-09 14:41] LABS: HEMOGLOBIN A1c 5.4 %
== END ==
LOC: M WUC 09:46
PROVIDERS: ATTEND Family Medicine
DX: M25.562 Pain in left knee (principal); M25.561 Pain in right knee; R73.01 Impaired fasting glucose; I10 Essential (primary) hypertension; D50.9 Iron deficiency anemia, unspecified; M17.0 Bilateral primary osteoarthritis of knee

== ENCOUNTER → 2023-03-12 | Outpatient (CLI) | payer OTHER ==
[2023-03-12 12:01] LABS: BASO # 0.1 10^3/uL (0.0-0.2); EOS # 0.5 10^3/uL (0.0-0.5); EOS % 6.9 % (0.0-3.0); HEMATOCRIT 39.5 % (42.0-52.0); HEMOGLOBIN 12.6 g/dl (13.5-17.5); LYMPH # 2.3 10^3/uL (1.5-5.0); LYMPH % 33.7 % (24.0-44.0); MEAN CORPUSCULAR HEMOGLOBIN 27.3 pg (27.0-33.0); MEAN CORPUSCULAR HGB CONC 31.9 g/dl (32.0-36.5); MEAN CORPUSCULAR VOLUME 85.7 fl (80.0-96.0); MONO # 0.4 10^3/uL (0.0-0.8); MONO % 6.4 % (2.0-8.0); NEUTROPHILS # 3.6 10^3/uL (1.5-8.5); NEUTROPHILS % 51.9 % (36.0-66.0); PLATELET COUNT, AUTOMATED 188 10^3/uL (150-450); RED BLOOD COUNT 4.61 10^6/uL (4.30-6.10); WHITE BLOOD COUNT 6.9 10^3/uL (4.0-10.0)
[2023-03-12 12:28] LABS: THYROID STIMULATING HORMONE 1.208 uIU/ML (0.55-4.78)
[2023-03-12 12:29] LABS: FOLLICLE STIMULATING HORMONE 33.3 mIU/ML (1.4-18.1); LUTEINIZING HORMONE 23.1 mIU/ML (1.5-9.3); PROLACTIN 4.87 NG/ML (2.1-17.7)
[2023-03-12 12:30] LABS: FREE T4 1.19 NG/DL (0.89-1.76)
== END ==
LOC: M WUC 09:32
PROVIDERS: ATTEND Nurse Practitioner Family
DX: E29.1 Testicular hypofunction (principal)
CPT/HCPCS: 36415; 82670; 83001; 83002; 84146; 84403; 84410; 84439; 84443; 85025; G0103

== ENCOUNTER → 2023-06-05 | Outpatient (CLI) | payer OTHER ==
[2023-06-05 11:39] LABS: HEMATOCRIT 43.8 % (42.0-52.0); HEMOGLOBIN 13.6 g/dl (13.5-17.5)
== END ==
LOC: M WUC 09:42
PROVIDERS: ATTEND Nurse Practitioner Family
DX: E29.1 Testicular hypofunction (principal)
CPT/HCPCS: 36415; 84403; 85014; 85018; G0103

== ENCOUNTER → 2023-12-29 | Outpatient (CLI) | payer OTHER ==
[2023-12-29 12:19] LABS: HEMATOCRIT 47.9 % (42.0-52.0); HEMOGLOBIN 15.1 g/dl (13.5-17.5)
== END ==
LOC: M WUC 09:11
PROVIDERS: ATTEND Nurse Practitioner Family
DX: E29.1 Testicular hypofunction (principal)

== ENCOUNTER → 2024-02-18 | Outpatient (CLI) | payer OTHER | LOC: M PLARAD 10:33 | PROVIDERS: ATTEND Psychiatry & Neurology Neurology | DX: G43.809 Other migraine, not intractable, without status migrainosus (principal) ==

== ENCOUNTER → 2024-06-17 | Outpatient (CLI) | payer OTHER ==
[2024-06-17 13:33] LABS: HEMATOCRIT 44.2 % (42.0-52.0); HEMOGLOBIN 14.6 g/dl (13.5-17.5)
[2024-06-17 13:57] LABS: PSA SCREENING 0.54 NG/ML (< 4.00)
== END ==
LOC: M WUC 09:27
PROVIDERS: ATTEND Nurse Practitioner Family
DX: E29.1 Testicular hypofunction (principal)
CPT/HCPCS: 36415; 84403; 85014; 85018; G0103

== ENCOUNTER → 2024-07-21 | Outpatient (CLI) | payer OTHER ==
[2024-07-21 13:08] LABS: ALBUMIN 3.6 G/DL (3.2-5.2); ALKALINE PHOSPHATASE 65 U/L (46-116); ALT/SGPT 19 U/L (7.0-40); AST/SGOT 12 U/L (<34); BILIRUBIN,TOTAL 1.2 MG/DL (0.3-1.2); BLOOD UREA NITROGEN 11 MG/DL (9-23); CALCIUM LEVEL 9.5 MG/DL (8.5-10.1); CARBON DIOXIDE LEVEL 28 MMOL/L (20-31); CHLORIDE LEVEL 110 MMOL/L (98-107); CHOLESTEROL LEVEL 168 MG/DL (<200); GLOMERULAR FILTRATION RATE > 60.0 (>60); GLUCOSE, FASTING 107 MG/DL (60-100); HDL CHOLESTEROL 27.5 MG/DL (>40); IRON (FE) 103 UG/DL (65-175); LDL CHOLESTEROL 110.3 MG/DL (<100); NON-HDL-C 140.5 MG/DL; PERCENT SATURATION 32.7 % (19.7-50.0); POTASSIUM SERUM 4.3 MMOL/L (3.5-5.1); SODIUM LEVEL 140 MMOL/L (136-145); TOTAL IRON BINDING CAPACITY 315 UG/DL (250-425); TOTAL PROTEIN 7.2 G/DL (5.7-8.2); TRIGLYCERIDES LEVEL 151 MG/DL (<150)
[2024-07-21 13:09] LABS: FERRITIN 68.8 NG/ML (10.5-307.3)
[2024-07-21 13:10] LABS: FREE T4 1.29 NG/DL (0.89-1.76); THYROID STIMULATING HORMONE 0.995 uIU/ML (0.55-4.78)
[2024-07-21 13:28] LABS: BASO # 0.1 10^3/uL (0.0-0.2); BASO % 0.7 % (0.0-1.0); EOS # 0.2 10^3/uL (0.0-0.5); EOS % 2.2 % (0.0-3.0); HEMATOCRIT 44.5 % (42.0-52.0); HEMOGLOBIN 14.8 g/dl (13.5-17.5); LYMPH # 1.8 10^3/uL (1.5-5.0); LYMPH % 26.7 % (24.0-44.0); MEAN CORPUSCULAR HEMOGLOBIN 28.5 pg (27.0-33.0); MEAN CORPUSCULAR HGB CONC 33.3 g/dl (32.0-36.5); MEAN CORPUSCULAR VOLUME 85.7 fl (80.0-96.0); MONO # 0.5 10^3/uL (0.0-0.8); MONO % 7.4 % (2.0-8.0); NEUTROPHILS # 4.3 10^3/uL (1.5-8.5); NEUTROPHILS % 62.6 % (36.0-66.0); PLATELET COUNT, AUTOMATED 198 10^3/uL (150-450); RED BLOOD COUNT 5.19 10^6/uL (4.30-6.10); WHITE BLOOD COUNT 6.8 10^3/uL (4.0-10.0)
[2024-07-23 00:47] LABS: IgG P18 AB NON-REACTIVE; IgG P23 AB NON-REACTIVE; IgG P28 AB NON-REACTIVE; IgG P30 AB NON-REACTIVE; IgG P39 AB NON-REACTIVE; IgG P41 AB NON-REACTIVE; IgG P45 AB REACTIVE; IgG P58 AB NON-REACTIVE; IgG P66 AB NON-REACTIVE; IgG P93 AB REACTIVE; IgM P23 AB NON-REACTIVE; IgM P39 AB NON-REACTIVE; IgM P41 AB NON-REACTIVE; LYME IgG WB INTERPRETATION NEGATIVE (NEGATIVE); LYME IgM WB INTERPRETATION NEGATIVE (NEGATIVE)
[2024-07-25 13:31] LABS: LYME TOTAL ANTIBODY CIA <= 0.90 Index (<=0.90)
== END ==
LOC: M WUC 09:16
PROVIDERS: ATTEND Family Medicine
DX: R06.02 Shortness of breath (principal); Z13.220 Encounter for screening for lipoid disorders; Z13.29 Encounter for screening for other suspected endocrine disorder

== ENCOUNTER → 2024-09-23 | Outpatient (CLI) | payer OTHER | LOC: M RAD 09:55 | PROVIDERS: ATTEND Surgery | DX: K80.20 Calculus of gallbladder without cholecystitis without obstruction (principal); K76.0 Fatty (change of) liver, not elsewhere classified ==

== ENCOUNTER → 2025-01-30 | Outpatient (CLI) | payer OTHER ==
[~2025-01-30] MED LIST changes: +E-Z-GAS II EFFERVESCENT PACKET (SODIUM BICARB./CITRIC ACID/SIMETHICONE) As Ordered ONE; +E-Z-HD 98% w/w 340GM SUSP BTL As Ordered ONE; +E-Z-PAQUE 96% w/w SUSP 176GM BTL As Ordered ONE
== END ==
LOC: M RAD 10:34
PROVIDERS: ATTEND Physician Assistant Surgical
DX: K44.9 Diaphragmatic hernia without obstruction or gangrene (principal)